=== PATIENT | female | born 2000 | race African-American/Black ===

== ENCOUNTER 2018-08-08 04:10 | Emergency (ER) | payer MEDICAID, SELFPAY ==
[2018-08-08 04:14] VITALS: BP 117/72; PULSE 84; RESP 20; TEMP 37.2; O2SAT 100; BMI 28.5
--- NOTE | 2018-08-08 04:17 | ED.RN ---
CALLED FOR EKG PER RN REQUEST, NO OLD EKGS IN MUSE
--- NOTE | 2018-08-08 04:32 | RAD_ITS ---
STUDY: X-RAY CHEST REASON FOR EXAM: Female, 17 years old. Chest pain TECHNIQUE: PA and lateral COMPARISON: None. FINDINGS: The lungs are clear and expanded. There is no demonstrated pleural abnormality. Normal size heart. Normal mediastinum and bianca. Normal visualized pulmonary arteries. Normal visualized aortic arch and descending thoracic aorta. Normal visualized thoracic spine. Normal visualized ribs, clavicles, and shoulders. There is no demonstrated abnormality of the visualized soft tissue structures of the upper abdomen. RAD/Chest PA and Lateral IMPRESSION: Normal x-ray examination of the chest. Electronically Signed: Asa Lao MD at 5:24 EST , Service support ,
--- NOTE | 2018-08-08 04:32 | EKG12_ITS ---
Test Reason : CP,SOB Blood Pressure : / mmHG Vent. Rate : 080 BPM Atrial Rate : 080 BPM P-R Int : 208 ms QRS Dur : 092 ms QT Int : 390 ms P-R-T Axes : 050 042 058 degrees QTc Int : 449 ms Normal sinus rhythm Normal ECG Confirmed by BENJIE ESTRADA, ESTHER ([id number]), assignment editor HUSEYIN RAMOS ([id number] on 08/11/2018 1:30:56 PM Referred By: YOANDY Confirmed By:ESTHER WALRDOP MD
[2018-08-08] MEDS: Ketorolac 30 MG/ML Syringe IV (04:42)
[2018-08-08 04:46] VITALS: BP 102/70; PULSE 75; RESP 16; O2SAT 100
[2018-08-08 04:52] LABS: Absolute Lymphocyte Count 2.31 X10^3/ul (0.83-4.51); Basophil# 0.04 X10^3/uL; Basophil% 0.5 % (0-1); Eosinophils% 2.7 % (0-5); Hematocrit 34.5 % (37-47); Hemoglobin 11.1 g/dl (12.0-15.0); Lymphocyte # 2.31 X10^3/ul (4.0); Mean Corp Hgb Conc 32.2 g/gl (32-36); Mean Corpuscular Hgb 25.9 pg (27.0-32.0); Mean Corpuscular Volume 80.6 fL (81-99); Monocyte# 0.87 X10^3/uL; Monocyte% 11.7 % (0-10); Neutrophil # 4.03 X10^3/uL (2.7-7.7); Platelet Count 280 K/mm3 (150-450); RBC Distribution Width CV 13.7 % (11.6-14.6); RBC Distribution Width SD 40.4 fl (35.1-43.9); Red Blood Count 4.28 M/mm3 (4.2-5.4); White Blood Count 7.5 K/mm3 (4.4-11.0)
[2018-08-08 04:55] LABS: POSITIVE COUNT NO; POSITIVE DIFFERENTIAL NO; POSITIVE MORPHOLOGY NO
[2018-08-08 04:59] LABS: Anion Gap 9 (5-15); BUN 9 mg/dL (7-18); BUN/Creat Ratio 11.4 RATIO (10-20); Calcium,Total 8.5 mg/dL (8.5-10.1); Chloride 107 mmol/L (98-107); Creatinine, Serum 0.79 mg/dL (0.55-1.02); EST Glomerular Filtration Rate 99 mL/min (>60); Est Glom Filt Rate - Afr Amer 120 mL/min (>60); Estimated Creatinine Clearance 94.75 ml/min; Glucose 84 mg/dL (74-106); Potassium 3.7 mmol/L (3.5-5.1); Sodium Level 142 mmol/L (136-145)
[2018-08-08 05:00] LABS: D-Dimer Quantitative (DVT/PE) 2.09 FEU/ug/m (0.27-0.49)
[2018-08-08 05:01] LABS: Pregnancy, Serum, hCG Quali. NEGATIVE Negative (0-9 Nonpreg)
--- NOTE | 2018-08-08 05:01 | CT_ITS ---
STUDY: CTA CHEST REASON FOR EXAM: Female, 17 years old. Chest pain RADIATION DOSAGE (If Supplied By Facility): CTDIvol = ( 5.08 ) mGy, DLP = ( 209.14 ) mGycm TECHNIQUE: The examination was performed with the intravenous administration of 100ML ml of Isovue 370 contrast material. Post-processing of the angiographic images was performed, with multiplanar reformation and 3D reconstruction. Individualized dose optimization techniques were used for this CT. COMPARISON: None. FINDINGS: Normal enhancement of the main pulmonary artery and right and left pulmonary arteries. Normal enhancement of the bilateral peripheral pulmonary arteries. There is no demonstrated pulmonary embolism. Normal thoracic aorta and visualized great vessels. There is no demonstrated aortic dissection. Normal heart and pericardium. Normal mediastinum. Normal hilar regions. Normal visualized trachea and bronchi. There are infiltrates at the LEFT lung base. There is a small LEFT pleural effusion. There is NO pneumothorax. Normal chest wall structures. Normal osseous structures. Normal visualized upper abdomen. CT/CTA Chest W/WO Contrast IMPRESSION: There is no demonstrated pulmonary embolism. Normal thoracic aorta and visualized great vessels. There is no demonstrated aortic dissection. Normal heart and pericardium. There are infiltrates at the LEFT lung base. There is a small LEFT pleural effusion. There is NO pneumothorax. Electronically Signed: Asa Lao MD at 6:28 EST , Service support ,
--- NOTE | 2018-08-08 05:02 | ED.VISSUMM ---
- ER Visit Summary Date of Service: 08/08/18 Chief Complaint: Chest pain History of Present Illness: The patient is a 17 F who states that she was at work yesterday at [employer] from 0700 hours until 1500 hrs. 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 She states that it hurts to breathe. This is persisted through the evening and into the night. She is tried her inhaler with no relief. She has never experienced this before. She denies feeling wheezy. She is on Sprintec and is a smoker. Physical Examination: Afebrile vital signs are stable Gen: Well-nourished well-developed Head: Normocephalic atraumatic Eyes: Perrl EOMI ENT: TMs clear no rhinorrhea moist mucous membranes Neck: Supple no lymphadenopathy no JVD nontender CVS: Regular rate rhythm no murmurs normal S1-S2 Respiratory: No distress clear to auscultation bilaterally mild chest tenderness to palpation in the left upper chest Abdomen: Soft nontender nondistended normal bowel sounds no masses Back: Nontender Extremity: Nontender no edema Skin: Normal color no rash Neuro: alert orientated ?3 CN II-XII intact normal strength sensation reflexes gait cerebellar Psych: Normal affect normal mood Test Results: CBC and chemistries were normal. Troponin was negative. Chest x-ray negative. EKG showed a sinus rhythm at a rate of 80 and test is negative. D-dimer however was significantly elevated at 2.09. CTA of the chest was ordered. This was negative for pulmonary embolism Emergency Department Course and Treatment: Patient received Toradol for pain. SANTANA is 0. I believe that this is musculoskeletal in nature. Patient was advised against smoking with control. Patient will do ibuprofen and rest. Follow-up with primary care if not improving return if worsening or concerns Impression: 1. Musculoskeletal chest pain This note was generated with [employer] dictation software. It may contain incorrect words, spelling, and punctuation that were not noted in review of the chart prior to signing ED Disposition - Plan for ED Patient: Disposition: Home or Assisted Living Chief Complaint: Chest Pain Instructions: ED Strain Chest Wall Prescriptions: Ibuprofen [Motrin] 800 mg PO TID PRN PRN #30 tab PRN Reason: Pain Referrals: Jaelyn Landis MD [STAFF PHYSICIAN] - (call to establish primary care)
--- NOTE | 2018-08-08 05:08 | ED.DCSUM_ITS ---
- ER Visit Summary Date of Service: 08/08/18 Chief Complaint: Chest pain History of Present Illness: The patient is a 17 F who states that she was at work yesterday at [employer] from 0700 hours until 1500 hrs. 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 She states that it hurts to breathe. This is persisted through the evening and into the night. She is tried her inhaler with no relief. She has never experienced this before. She denies feeling wheezy. She is on Sprintec and is a smoker. Physical Examination: Afebrile vital signs are stable Gen: Well-nourished well-developed Head: Normocephalic atraumatic Eyes: Perrl EOMI ENT: TMs clear no rhinorrhea moist mucous membranes Neck: Supple no lymphadenopathy no JVD nontender CVS: Regular rate rhythm no murmurs normal S1-S2 Respiratory: No distress clear to auscultation bilaterally mild chest tenderness to palpation in the left upper chest Abdomen: Soft nontender nondistended normal bowel sounds no masses Back: Nontender Extremity: Nontender no edema Skin: Normal color no rash Neuro: alert orientated ?3 CN II-XII intact normal strength sensation reflexes gait cerebellar Psych: Normal affect normal mood Test Results: CBC and chemistries were normal. Troponin was negative. Chest x- ray negative. EKG showed a sinus rhythm at a rate of 80 and test is negative. D-dimer however was significantly elevated at 2.09. CTA of the chest was ordered. This was negative for pulmonary embolism Emergency Department Course and Treatment: Patient received Toradol for pain. SANTANA is 0. I believe that this is musculoskeletal in nature. Patient was advised against smoking with control. Patient will do ibuprofen and rest. Follow-up with primary care if not improving return if worsening or concerns Impression: 1. Musculoskeletal chest pain This note was generated with [employer] dictation software. It may contain incorrect words, spelling, and punctuation that were not noted in review of the chart prior to signing ED Disposition - Plan for ED Patient: Disposition: Home or Assisted Living Chief Complaint: Chest Pain Instructions: ED Strain Chest Wall Prescriptions: Ibuprofen [Motrin] 800 mg PO TID PRN PRN #30 tab PRN Reason: Pain Referrals: Jaelyn Landis MD [STAFF PHYSICIAN] - (call to establish primary care)
[2018-08-08 05:40] VITALS: BP 110/69; PULSE 73; RESP 16; O2SAT 99
[2018-08-08 06:12] VITALS: BP 108/68; PULSE 76; RESP 16; O2SAT 100
[2018-08-08 07:07] VITALS: BP 105/61; PULSE 78; RESP 18; O2SAT 99
--- OUTSIDE RECORDS SUMMARY | 2018-11-09 11:16 | XMS RPT_ITS ---
:2000 Author Organization [facility] Care Team Providers Name Role Phone HOMA SUZY Attending Unavailable AVIVA SINGH (CNAnderson) Attending Unavailable Anderson OVALLES (AVNI) Attending Unavailable Joe Oh Attending Unavailable Primay Care Physicia, No Primary Care Unavailable PROBLEMS PROBLEMS No Problem Records FoundPROCEDURES PROCEDURES No Procedure Records FoundRESULTS RESULTS PROGRESS Observed: 08/23/2018 Status: COMPLETED Source: [place] 9:55 AM [facility] REPOSITORY O ID: [id number] Author: Anderson Pickering (Avni) Josr Service: (none) Author Type: Physician Line Installer Repairer Type: Progress Notes Filed: 08/23/2018 12:55 PM Note Text: 17 year old female with c/o 3 days with cold sx including stuffy, drippy, sinus pressure, scratchy sore throat, no fever, mild cough occasional phlegm. Niece has sx of pneumonia, was babysitting here. Sister was diagnosed with strep. HISTORIES FAMILY HISTORY Problem Relation Age of Onset - Cancer Mother Maternal AND Paternal sides - Diabetes Mother Maternal side PAST MEDICAL HISTORY Diagnosis Date - Abnormal menstrual periods 2011 Age [age] Years Old - Asthma exacerbation, mild 2015 - NEGATIVE MEDICAL HISTORY 03/16/11 normal color vision PAST SURGICAL HISTORY Procedure Laterality Date - NONE Social History Marital status: Single Spouse name: Years of education: 12 Number of children: 0 Occupational History Occupation Employer Comment student Social History Main Topics Smoking status: Never Smoker Smokeless tobacco: Never Used Comment: guardian smokes outside Alcohol use: No Drug use: No Sexual activity: Yes Partners with: Male control/protection: Pill ACTIVE PROBLEM LIST Asthma Current Outpatient Prescriptions: albuterol HFA (PROAIR HFA) 90 mcg/actuation inhaler Inhale 2 Puffs as instructed every 6 hours as needed for Wheezing/Shortness of Breath. Disp: 1 g Rfl: 11 ibuprofen (MOTRIN) 800 mg tablet Take 800 mg by mouth every 6 hours as needed. Disp: Rfl: loratadine (CLARITIN) 10 mg tablet Take 1 tablet by mouth once daily. Disp: 30 tablet Rfl: 6 norgestimate 0.25 mg-ethinyl estradiol 35 mcg (ESTARYLLA) 0.25-35 mg-mcg per tablet Take 1 tablet by mouth once daily. Disp: 1 Package Rfl: 2 rizatriptan (MAXALT) 10 mg tablet Take 1 tablet by mouth as needed for Migraine Headache (see administration instructions). Take at onset of headache; may repeat after 2hrs. Do not exceed 30mg/day (3 doses). Disp: 20 tablet Rfl: 2 No current facility-administered medications for this visit. ASTHMA ACTION PLAN due on 2000 ASTHMA CONTROL TEST due on 2002 ONE PNEUMOVAX PRIOR TO AGE 65 due on 2017 INFLUENZA(1) due on 04/22/2018 EXAM: OBJECTIVE: BP 110/66 Pulse 88 Temp 36.9 ?C (98.4 ?F) (Tympanic) Resp 16 Wt 71.7 kg (158 lb) LMP 08/18/2018 (Exact Date) BMI 27.99 kg/m? General appearance: pleasant well appearing young woman in no acute distress but congestion noted. Respirations: regular, unlabored Color: pink to lips and nailbeds, normal turgor Skin: warm, dry, no unusual rashes or lesions Head: Normocephalic Eyes: sclerae and conjunctivae without injection or exudate, PERRLA, EOMI, corneal light reflex symmetric bilaterally Ears: TM's are clear/ lopez bilaterally with normal landmarks, no swelling or deformity ear canal or external ear Nose/Sinuses: Nose patent. No turbinate swelling. Active exudate: no. Maxillary and frontal sinuses nontender to percussion. Oropharynx: oral membranes are moist. Lips, mucosa, and tongue free from lesions. Gums without inflammation. Posterior pharynx no injection, no exudate, no tonsillar hypertrophy. Neck: Neck supple, mild anterior cervical lymphadenopathy ; thyroid without mass or tenderness. Chest: normally shaped, equal expansion with breaths. Lungs: Lungs clear to auscultation and percussion. No crackles or wheezes. Heart: RRR without murmur, gallop, or rubs. S1 and S2 normal. R. Strep test negative ASSESSMENT/PLAN: 1. Sore throat - ICD9: 462, ICD10: J02.9 (primary diagnosis) - suspect viral - RAPID STREP TEST B/O 2. Acute upper respiratory infection - ICD9: 465.9, ICD10: J06.9 - Discussed viral etiology and rationale for treatment. - Symptomatic treatment with prn analgesia - Supportive care with fluids and rest f/u prn, worsening or fever Anderson Ovalles PA-C CNOV Observed: 08/23/2018 Status: COMPLETED Source: [place] 9:40 AM [facility] REPOSITORY Office Visit (FAMPWS) JENNIFER YANG ([id number]) 2000 F Date Time Provider Department 08/23/18 9:40 AM Anderson OVALLES) FAMPWS During your visit today, we recorded the following information about you: Temperature Pulse Respiration Blood pressure 98.4 degrees 88/minute 16/minute 110/66 Weight Last Period 71.7 kg 08/18/18 Anderson Ovalles PA-C 08/23/2018 12:55 PM Signed 17 year old female with c/o 3 days with cold sx including stuffy, drippy, sinus pressure, scratchy sore throat, no fever, mild cough occasional phlegm. Niece has sx of pneumonia, was babysitting here. Sister was diagnosed with strep. HISTORIES FAMILY HISTORY Problem Relation Age of Onset - Cancer Mother Maternal AND Paternal sides - Diabetes Mother Maternal side PAST MEDICAL HISTORY Diagnosis Date - Abnormal menstrual periods 2010 Age [age] Years Old - Asthma exacerbation, mild 2014 - NEGATIVE MEDICAL HISTORY 03/16/11 normal color vision PAST SURGICAL HISTORY Procedure Laterality Date - NONE Social History Marital status: Single Spouse name: Years of education: 12 Number of children: 0 Occupational History Occupation Employer Comment student Social History Main Topics Smoking status: Never Smoker Smokeless tobacco: Never Used Comment: guardian smokes outside Alcohol use: No Drug use: No Sexual activity: Yes Partners with: Male control/protection: Pill ACTIVE PROBLEM LIST Asthma Current Outpatient Prescriptions: albuterol HFA (PROAIR HFA) 90 mcg/actuation inhaler Inhale 2 Puffs as instructed every 6 hours as needed for Wheezing/Shortness of Breath. Disp: 1 g Rfl: 11 ibuprofen (MOTRIN) 800 mg tablet Take 800 mg by mouth every 6 hours as needed. Disp: Rfl: loratadine (CLARITIN) 10 mg tablet Take 1 tablet by mouth once daily. Disp: 30 tablet Rfl: 6 norgestimate 0.25 mg-ethinyl estradiol 35 mcg (ESTARYLLA) 0.25-35 mg-mcg per tablet Take 1 tablet by mouth once daily. Disp: 1 Package Rfl: 2 rizatriptan (MAXALT) 10 mg tablet Take 1 tablet by mouth as needed for Migraine Headache (see administration instructions). Take at onset of headache; may repeat after 2hrs. Do not exceed 30mg/day (3 doses). Disp: 20 tablet Rfl: 2 No current facility-administered medications for this visit. ASTHMA ACTION PLAN due on 2000 ASTHMA CONTROL TEST due on 2002 ONE PNEUMOVAX PRIOR TO AGE 65 due on 2017 INFLUENZA(1) due on 04/22/2018 EXAM: OBJECTIVE: BP 110/66 Pulse 88 Temp 36.9 ?C (98.4 ?F) (Tympanic) Resp 16 Wt 71.7 kg (158 lb) LMP 08/18/2018 (Exact Date) BMI 27.99 kg/m? General appearance: pleasant well appearing young woman in no acute distress but congestion noted. Respirations: regular, unlabored Color: pink to lips and nailbeds, normal turgor Skin: warm, dry, no unusual rashes or lesions Head: Normocephalic Eyes: sclerae and conjunctivae without injection or exudate, PERRLA, EOMI, corneal light reflex symmetric bilaterally Ears: TM's are clear/ lopez bilaterally with normal landmarks, no swelling or deformity ear canal or external ear Nose/Sinuses: Nose patent. No turbinate swelling. Active exudate: no. Maxillary and frontal sinuses nontender to percussion. Oropharynx: oral membranes are moist. Lips, mucosa, and tongue free from lesions. Gums without inflammation. Posterior pharynx no injection, no exudate, no tonsillar hypertrophy. Neck: Neck supple, mild anterior cervical lymphadenopathy ; thyroid without mass or tenderness. Chest: normally shaped, equal expansion with breaths. Lungs: Lungs clear to auscultation and percussion. No crackles or wheezes. Heart: RRR without murmur, gallop, or rubs. S1 and S2 normal. R. Strep test negative ASSESSMENT/PLAN: 1. Sore throat - ICD9: 462, ICD10: J02.9 (primary diagnosis) - suspect viral - RAPID STREP TEST B/O 2. Acute upper respiratory infection - ICD9: 465.9, ICD10: J06.9 - Discussed viral etiology and rationale for treatment. - Symptomatic treatment with prn analgesia - Supportive care with fluids and rest f/u prn, worsening or fever AVNI Resendez PA-C 08/23/2018 10:04 AM Signed Your rapid strep test was negative. A second swab has been sent for confirmation by DNA probe. Results will be back in 2 days. It is unlikely that it will be positive, but if it is, you will be notified and antibiotics will be prescribed. If you haven't heard from us, you may call in 3 days for results. Most sore throats will resolve without the use of antibiotics. Cold viruses are the most common causes of sore throat. They are transmitted through direct contact and airborne droplets from other infected people through coughing or sneezing. Usually the throat pain will resolve over 4-5 days, but may occur with or be followed by other symptoms, such as runny nose, stuffiness, head congestion, chest congestion , and cough. Be aware that most sore throats are caused by viruses, not strep. The Centers for Disease Control and Prevention (CDC) recommends AGAINST treating sore throats with antibiotics unless the strep test is positive. Strep cannot be diagnosed by symptoms or a physical exam alone. The level of throat pain doesn't correlate with whether or not the infection is bacterial or viral. Some of the worst sore throats may come from viruses. For example, Caitlyn Allen which causes mononucleosis may produce painful, inflamed tonsils which exude pus. Coxsacchie virus causes ulcerations in the back of the throat which can cause an extremely painful swallow. These virus do not respond to antibiotics. Strep. throat is caused by a bacterial infection with Streptococcus Pyogenes. We test and treat for Strep. because of the rare occurrence of Rheumatic Fever which can follow untreated infection. This is an autoimmune response in which a particular strain of this bacteria carries a protein that is similar to that in heart and kidney tissue. The immune system then gets trigger to attack the heart and kidney. Other bacteria and viruses which cause sore throats do not need to be treated with antibiotics. Your body will fight them off and develop immunity which will prevent it from occurring again. Your body would also fight off Strep. and get better too, but because risk of developing rheumatic fever, we treat it differently. Sore throats may also come from other sources such as environmental allergies, postnasal drainage from changes in temperature or humidity, dryness from mouth breathing during sleep, reflux of stomach acids, or even vocal overuse. For sore throat treatment, run a cool mist humidifier in the sleeping area to keep mucus membranes moist. Drink plenty of fluids, especially water, juices, and non-caffeinated beverages, (caffeine acts as a diuretic and may worsen dryness). Warm salt water gargles may be soothing (rinse and spit). Chlorseptic spray, lozenges, or regular use of Tylenol, Advil, or other OTC pain remedies may help. For cold sx: Get plenty of rest. Force fluids daily with water and juices. Nasal saline spray may help to keep nose open and moist: 2- 3 squirts each side every few hours. This also help to rinse out virus and bacteria causing infection. Cool mist humidifier in room during sleep. May use OTC Tylenol or Ibuprofen as direct for discomfort. For sore throat, warm salt water gargles, Chlorseptic spray, lozenges or other OTC sore throat remedies may help. Decongestants such as plain Sudafed or with expectorant such as Mucinex D may help with nasal stuffiness or facial and sinus pressure. Generics are fine. These are over the counter but require an adult signature. Oxymetolazine nasal decongestants (Afrin, Dristan, Pedro's) may also help (in place of oral decongestants) but should not be used longer than 48-72 hours due to potential rebound congestion. OTC antihistamines such Benadryl (make cause drowsiness) or Zyrtec/ Clariten/ Candace (non-drowsy) may help watery nasal drainage though they are generally not recommended because they dry mucus and make it sticky. The flow of mucus is important to help your body rid the virus. If cough keeps you awake at night, try OTC remedies first, such as Nyquil, Delsym, Pedro's 44 or Mucinex DM. If this doesn't help you sleep, call the office for a prescription. Be careful if you are combining cough and cold medications that you aren't doubling the medicines. If you aren't sure: ask the pharmacist for help. Cough or sneeze into your sleeve to prevent spread of infected secretions. Wash your hands frequently. Try not to cough or sneeze on surfaces others might touch. You may use Ibuprofen 600mg every 6-8 hours with food routinely until pain is fully resolved, then prn. Ibuprofen can cause stomach symptoms including ulceration, bleeding, nausea, pain, and diarrhea. Make sure to take it with food. If you are known to have allergy to anti-inflamatories medications, or have known kidney disease, make sure we know this before you take the medication. If symptoms fail to improve in 5-7 days, fever > 100.5F, general worsening, or other concerning symptoms, return to [facility] or SUZY LUTHER MD. Referring Provider: SELF [[id number]] Allergies As of Date: 08/23/2018 Noted Allergy Reaction environmental [Other] 05/11/2008 Comments: seasonal allergies IMITREX (SUMATRIPTAN SUCCINATE) 05/31/2018 12 - Shortness of Breath Date Reviewed: 08/23/2018 Reviewed by: Selma Mcfadden LPN - Fully Assessed Reason for Visit: URI [115] Cmt: nasal congestion, post nasal drip with scratchy throat x 2 days. Has been exposed to strep and pneumonia Reason For Visit History Recorded Primary Visit Diagnosis:Sore throat [J02.9] Other Visit Diagnosis:Acute upper respiratory infection [J06.9] Order(s):RAPID STREP TEST B/O [[id number]] Order #: [id number] Prescriptions as of 08/23/2018 Sig: ALBUTEROL SULFATE HFA 90 MCG/* Inhale 2 Puffs as instructed * IBUPROFEN 800 MG TABLET Take 800 mg by mouth every 6 * LORATADINE 10 MG TABLET Take 1 tablet by mouth once d* NORGESTIMATE 0.25 MG-ETHINYL * Take 1 tablet by mouth once d* RIZATRIPTAN 10 MG TABLET Take 1 tablet by mouth as nee* Problem List As Of Date 08/23/2018 Noted Resolved Asthma [J45.909] INVALID FOR* Other instructions from your clinician: Your rapid strep test was negative. A second swab has been sent for confirmation by DNA probe. Results will be back in 2 days. It is unlikely that it will be positive, but if it is, you will be notified and antibiotics will be prescribed. If you haven't heard from us, you may call in 3 days for results. Most sore throats will resolve without the use of antibiotics. Cold viruses are the most common causes of sore throat. They are transmitted through direct contact and airborne droplets from other infected people through coughing or sneezing. Usually the throat pain will resolve over 4-5 days, but may occur with or be followed by other symptoms, such as runny nose, stuffiness, head congestion, chest congestion , and cough. Be aware that most sore throats are caused by viruses, not strep. The Centers for Disease Control and Prevention (CDC) recommends AGAINST treating sore throats with antibiotics unless the strep test is positive. Strep cannot be diagnosed by symptoms or a physical exam alone. The level of throat pain doesn't correlate with whether or not the infection is bacterial or viral. Some of the worst sore throats may come from viruses. For example, Caitlyn Allen which causes mononucleosis may produce painful, inflamed tonsils which exude pus. Coxsacchie virus causes ulcerations in the back of the throat which can cause an extremely painful swallow. These virus do not respond to antibiotics. Strep. throat is caused by a bacterial infection with Streptococcus Pyogenes. We test and treat for Strep. because of the rare occurrence of Rheumatic Fever which can follow untreated infection. This is an autoimmune response in which a particular strain of this bacteria carries a protein that is similar to that in heart and kidney tissue. The immune system then gets trigger to attack the heart and kidney. Other bacteria and viruses which cause sore throats do not need to be treated with antibiotics. Your body will fight them off and develop immunity which will prevent it from occurring again. Your body would also fight off Strep. and get better too, but because risk of developing rheumatic fever, we treat it differently. Sore throats may also come from other sources such as environmental allergies, postnasal drainage from changes in temperature or humidity, dryness from mouth breathing during sleep, reflux of stomach acids, or even vocal overuse. For sore throat treatment, run a cool mist humidifier in the sleeping area to keep mucus membranes moist. Drink plenty of fluids, especially water, juices, and non-caffeinated beverages, (caffeine acts as a diuretic and may worsen dryness). Warm salt water gargles may be soothing (rinse and spit). Chlorseptic spray, lozenges, or regular use of Tylenol, Advil, or other OTC pain remedies may help. For cold sx: Get plenty of rest. Force fluids daily with water and juices. Nasal saline spray may help to keep nose open and moist: 2-3 squirts each side every few hours. This also help to rinse out virus and bacteria causing infection. Cool mist humidifier in room during sleep. May use OTC Tylenol or Ibuprofen as direct for discomfort. For sore throat, warm salt water gargles, Chlorseptic spray, lozenges or other OTC sore throat remedies may help. Decongestants such as plain Sudafed or with expectorant such as Mucinex D may help with nasal stuffiness or facial and sinus pressure. Generics are fine. These are over the counter but require an adult signature. Oxymetolazine nasal decongestants (Afrin, Dristan, Pedro's) may also help (in place of oral decongestants) but should not be used longer than 48-72 hours due to potential rebound congestion. OTC antihistamines such Benadryl (make cause drowsiness) or Zyrtec/ Clariten/ Candace (non-drowsy) may help watery nasal drainage though they are generally not recommended because they dry mucus and make it sticky. The flow of mucus is important to help your body rid the virus. If cough keeps you awake at night, try OTC remedies first, such as Nyquil, Delsym, Pedro's 44 or Mucinex DM. If this doesn't help you sleep, call the office for a prescription. Be careful if you are combining cough and cold medications that you aren't doubling the medicines. If you aren't sure: ask the pharmacist for help. Cough or sneeze into your sleeve to prevent spread of infected secretions. Wash your hands frequently. Try not to cough or sneeze on surfaces others might touch. You may use Ibuprofen 600mg every 6-8 hours with food routinely until pain is fully resolved, then prn. Ibuprofen can cause stomach symptoms including ulceration, bleeding, nausea, pain, and diarrhea. Make sure to take it with food. If you are known to have allergy to anti-inflamatories medications, or have known kidney disease, make sure we know this before you take the medication. If symptoms fail to improve in 5-7 days, fever > 100.5F, general worsening, or other concerning symptoms, return to [facility] or SUZY LUTHER MD. Letter Text [facility] [address], [place] [address] Jennifer Tam Dylon [address] [place] [address] Clinic #: [id number] 08/23/2018 To Whom it may concern, Jennifer Yang was examined here for an acute medical condition. Please excuse her from work missed today. Thank you, Antwan Ovalles PA-C Encounter Status:Closed by Anderson OVALLES PA-C on 08/23/18 EMERGENCY DEPARTMENT Observed: 08/14/2018 Status: F Source: [place] SUMMARY 7:03 AM [facility] RE[facility]IT[facility] Medical Records Department [address] [place] [address] Emergency Department Summary 08/08/18 0502 MR#: [id number] Acct: [id number] Name: JENNIFER YANG Rep #: [id number] : 2000 17 From: Joe Oh DO PCP: Care Physician, No Primary Status: DEP ER - ER Visit Summary Date of Service: 08/08/18 Chief Complaint: Chest pain History of Present Illness: The patient is a 17 F who states that she was at work yesterday at [employer] from 0700 hours until 1500 hrs. 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 She states that it hurts to breathe. This is persisted through the evening and into the night. She is tried her inhaler with no relief. She has never experienced this before. She denies feeling wheezy. She is on Sprintec and is a smoker. Physical Examination: Afebrile vital signs are stable Gen: Well-nourished well-developed Head: Normocephalic atraumatic Eyes: Perrl EOMI ENT: TMs clear no rhinorrhea moist mucous membranes Neck: Supple no lymphadenopathy no JVD nontender CVS: Regular rate rhythm no murmurs normal S1-S2 Respiratory: No distress clear to auscultation bilaterally mild chest tenderness to palpation in the left upper chest Abdomen: Soft nontender nondistended normal bowel sounds no masses Back: Nontender Extremity: Nontender no edema Skin: Normal color no rash Neuro: alert orientated 3 CN II-XII intact normal strength sensation reflexes gait cerebellar Psych: Normal affect normal mood Test Results: CBC and chemistries were normal. Troponin was negative. Chest x-ray negative. EKG showed a sinus rhythm at a rate of 80 and test is negative. D-dimer however was significantly elevated at 2.09. CTA of the chest was ordered. This was negative for pulmonary embolism Emergency Department Course and Treatment: Patient received Toradol for pain. SANTANA is 0. I believe that this is musculoskeletal in nature. Patient was advised against smoking with control. Patient will do ibuprofen and rest. Follow-up with primary care if not improving return if worsening or concerns Impression: 1. Musculoskeletal chest pain This note was generated with [employer] dictation software. It may contain incorrect words, spelling, and punctuation that were not noted in review of the chart prior to signing ED Disposition - Plan for ED Patient: Disposition: Home or Assisted Living Chief Complaint: Chest Pain Instructions: ED Strain Chest Wall Prescriptions: Ibuprofen [Motrin] 800 mg PO TID PRN PRN #30 tab PRN Reason: Pain Referrals: Jaelyn Landis MD [STAFF PHYSICIAN] - (call to establish primary care) What to do if you have Problems For any increased pain, shortness of breath, bleeding, nausea or vomiting, chest pain, or any unexpected problems, contact your Primary Care Provider. Call [facility] ([phone]) or report to the closest Emergency Room. Call 911 if necessary. 08/14/18 0703 <Electronically signed by Joe Oh DO> Date Joe Oh DO Cosigner Signature (If Indicated): Date CC: No Primary Care Physician 12 LEAD ELECTROCARDIOGRAM Observed: 08/11/2018 Status: F Source: [place] 1:31 PM [facility] RE[facility]ITORY [facility] Cardiovascular Services [address] [place] [id number] Lead EKG 08/08/18 0418 MR#: [id number] Acct: [id number] Name: JENNIFER YANG Rep #: [id number] : 2000 17 From: Rik Lam MD Attending Dr: Status: DEP ER Ordering Dr: Joe Oh DO Date: 08/08/18 Location: ED Sex: F AA Admitted: Test Reason : CP,SOB Blood Pressure : / mmHG Vent. Rate : 080 BPM Atrial Rate : 080 BPM P-R Int : 208 ms QRS Dur : 092 ms QT Int : 390 ms P-R-T Axes : 050 042 058 degrees QTc Int : 449 ms Normal sinus rhythm Normal ECG Confirmed by RIK LAM MD ([id number]), scientific editor HUSEYIN RAMOS ([id number]) on 08/11/2018 1:30:56 PM Referred By: YOANDY Confirmed By:RIK LAM MD 08/11/18 1331 Date Rik Lam MD CC: No Primary Care Physician; Joe Oh DO Signed CTA CHEST W/WO Observed: 08/08/2018 Status: F Source: [place] CONTRAST 5:01 AM [facility] [facility] Imaging Services [address] [place] [address] CTA Chest W/WO Contrast MR#: [id number] Acct: [id number] Name: JENNIFER YANG Rep #: [id number] : 2000 F 17 From: Asa Lao PCP: Care Physician, No Primary Status: REG ER Study: CTA Chest W/WO Contrast Date of Exam: 08/08/18 Exam# [id number] Ordering Dr: Joe Oh DO STUDY: CTA CHEST REASON FOR EXAM: Female, 17 years old. Chest pain RADIATION DOSAGE (If Supplied By Facility): CTDIvol = ( 5.08 ) mGy, DLP = ( 209.14 ) mGycm TECHNIQUE: The examination was performed with the intravenous administration of 100ML ml of Isovue 370 contrast material. Post-processing of the angiographic images was performed, with multiplanar reformation and 3D reconstruction. Individualized dose optimization techniques were used for this CT. COMPARISON: None. FINDINGS: Normal enhancement of the main pulmonary artery and right and left pulmonary arteries. Normal enhancement of the bilateral peripheral pulmonary arteries. There is no demonstrated pulmonary embolism. Normal thoracic aorta and visualized great vessels. There is no demonstrated aortic dissection. Normal heart and pericardium. Normal mediastinum. Normal hilar regions. Normal visualized trachea and bronchi. There are infiltrates at the LEFT lung base. There is a small LEFT pleural effusion. There is NO pneumothorax. Normal chest wall structures. Normal osseous structures. Normal visualized upper abdomen. CT/CTA Chest W/WO Contrast IMPRESSION: There is no demonstrated pulmonary embolism. Normal thoracic aorta and visualized great vessels. There is no demonstrated aortic dissection. Normal heart and pericardium. There are infiltrates at the LEFT lung base. There is a small LEFT pleural effusion. There is NO pneumothorax. Electronically Signed: Asa Lao MD at 6:28 EST , Service support , CC: No Primary Care Physician; Joe Oh DO Healthcare Associate: Signed CHEST PA AND LATERAL Observed: 08/08/2018 Status: F Source: [place] 4:33 AM [facility] REPOSITORY [facility] Imaging Services [address] [place] [address] Chest PA and Lateral MR#: [id number] Acct: [id number] Name: JENNIFER YANG Rep #: [id number] : 2000 F 17 From: Asa Lao PCP: Care Physician, No Primary Status: REG ER Study: Chest PA and Lateral Date of Exam: 08/08/18 Exam# [id number] Ordering Dr: Joe Oh DO STUDY: X-RAY CHEST REASON FOR EXAM: Female, 17 years old. Chest pain TECHNIQUE: PA and lateral COMPARISON: None. FINDINGS: The lungs are clear and expanded. There is no demonstrated pleural abnormality. Normal size heart. Normal mediastinum and bianca. Normal visualized pulmonary arteries. Normal visualized aortic arch and descending thoracic aorta. Normal visualized thoracic spine. Normal visualized ribs, clavicles, and shoulders. There is no demonstrated abnormality of the visualized soft tissue structures of the upper abdomen. RAD/Chest PA and Lateral IMPRESSION: Normal x-ray examination of the chest. Electronically Signed: Asa Lao MD at 5:24 EST , Service support , CC: No Primary Care Physician; Joe Oh DO Healthcare Associate: Signed CBC W/DIFF, AUTOMATED Collected: 08/08/2018 Status: F Source: [place] 4:14 AM [facility] REPOSITORY TYPE CODE TESTS RESULT OUT OF RANGE REFERENCE UNITS LAB L100.1000 4.4-11.0 K/mm3 Normal WBC 7.5 LAB L100.1200 4.2-5.4 M/mm3 Normal RBC 4.28 LAB L100.1300 12.0-15.0 g/dl Low HGB 11.1 LAB L100.1400 37-47 % Low HCT 34.5 LAB L100.1500 81-99 fL Low MCV 80.6 LAB L100.1600 27.0-32.0 pg Low MCH 25.9 LAB L100.1700 32-36 g/gl Normal MCHC 32.2 LAB L100.1810 11.6-14.6 % Normal RDW CV 13.7 LAB L100.1820 35.1-43.9 fl Normal RDW SD 40.4 LAB L100.1900 150-450 K/mm3 Normal PLT 280 LAB L100.2000 6.2-12.0 fl Normal MPV 9.0 LAB L100.2100 47-70 % Normal NEUT% 54.0 LAB L100.2200 19-41 % Normal LY% 31.0 LAB L100.2300 0-10 % High MONO% 11.7 LAB L100.2400 0-5 % Normal EO% 2.7 LAB L100.2500 0-1 % Normal BASO% 0.5 LAB L100.2550 0.0-0.9 % Normal IM GRAN % 0.100 Result Comment: IG% - Immature Granulocytes (promyelocytes, myelocytes and metamyelocytes) > 1% indicates that a LEFT SHIFT is Present. LAB L100.2620 2.0-7.7 X10 3/uL Normal Absolute Neut 4.0 LAB L100.2720 0.83-4.51 X10 3/ul Normal Absolute Lymph 2.31 Performed By: #### L100.0100 #### [facility] [address] [place], [place], [id number] BASIC METABOLIC Collected: 08/08/2018 Status: F Source: [place] PROFILE (BMP) 4:14 AM [facility] REPOSITORY TYPE CODE TESTS RESULT OUT OF RANGE REFERENCE UNITS LAB L501.0100 74-106 mg/dL Normal GLU 84 Result Comment: Please note revised GLUCOSE reference range effective 2017. LAB L501.1000 7-18 mg/dL Normal BUN 9 LAB L501.1100 0.55-1.02 mg/dL Normal CREAT,SERUM 0.79 Result Comment: The validity of the calculated GFR AND GFRAA in patients over 70 years has not been determined. Clinical correlation is essential. LAB L501.1110 >60 mL/min Normal EST GFR 99 Result Comment: Non- GFR Calc LAB L501.1115 >60 mL/min Normal EST GFR - AA 120 Result Comment: GFR Calc LAB L501.1255 ml/min Normal Estimated CRCL 94.75 LAB L501.1300 10-20 RATIO Normal BUN/CRE 11.4 LAB L501.2200 8.5-10 mg/dL Normal .1 CA 8.5 LAB L501.5300 136-14 mmol/L Normal 5 NA 142 LAB L501.5600 3.5-5. mmol/L Normal 1 K 3.7 LAB L501.5900 98-107 mmol/L Normal CL 107 LAB L501.6100 21.0-3 mmol/L Normal 2.0 CO2 26.0 LAB L501.6200 5-15 Normal GAP 9 Performed By: #### L500.2500, L501.4010 #### [facility] [address] [facility]. [place], [place], [address] TROPONIN-I Collected: 08/08/2018 Status: F Source: [place] 4:14 AM [facility] REPOSITORY TYPE CODE TESTS RESULT OUT OF RANGE REFERENCE UNITS LAB L501.4010 <0.045 ng/mL Normal < 0.015 TROPONIN-I Result Comment: TROPONIN-I EXPECTED VALUES <0.045 Negative 0.045 - 0.590 Consistent with Cardiac Damage > OR = 0.600 Critical Value Not every elevated troponin is indicative of IA. These values should be used with clinical judgement in examining the patient's clinical picture for diagnosis. To establish a diagnosis of IA versus myocardial injury, there must be a demonstrated rise and/or fall in the troponin values, in addition to ischemic symptoms, EKG changes, new regional wall motion abnormality, and/or angiographical evidence. PLEASE NOTE: REFERENCE RANGES EDITED 18 Performed By: #### L500.2500, L501.4010 #### [facility] [address] [facility] [place], [address] D-DIMER QUANTITATIVE Collected: 08/08/2018 Status: F Source: [place] (DVT/PE) 4:14 AM [facility] REPOSITORY TYPE CODE TESTS RESULT OUT OF RANGE REFERENCE UNITS LAB L300.8000 0.27-0.49 FEU/ug/m High alert D-DIMER 2.09 QUANT Result Comment: RESULTS CALLED TO ED 08/08/18 [address]. REPORT READ BACK BY SAME . D-Dimer ELEVATED (>0.49): Additional studies and clinical assessments are indicated to conclude diagnosis of: Deep Vein Thrombosis (DVT) or Pulmonary Embolism (PE) Performed By: #### L300.8000 #### [facility] [address], [address] ,SERUM,HCG QUALI. Collected: Status: F Source: [place] 08/08/2018 4:14 AM [facility] REPOSITORY TYPE CODE TESTS RESULT OUT OF REFERENCE UNITS RANGE LAB L700.6700 =>Qualitative mIU/mL Normal HCG Qual < 1 triggr LAB L700.7000 0-9 Nonpreg Negative Normal HCGSQUAL NEGATIVE Performed By: #### L700.6800 #### [facility] [address], [address] Observed: 06/14/2018 Status: F Source: [place] URINE CULTURE 3:16 PM [facility] REPOSITORY Sp. Request/Comment: - Specimen received in preservative Culture Result - >=100,000 CFU/ml Klebsiella pneumoniae --> ABNORMAL ALERT ORGANISM: Klebsiella pneumoniae METHOD: Minimum inhibitory concentration(Vitek) Antibiotic Interp EDWINA Status Ampicillin RESISTANT F Gentamicin SUSCEPTIBLE <=1 F Trimeth sulfameth SUSCEPTIBLE <=20 F Ciprofloxacin SUSCEPTIBLE <=0.25 F Nitrofurantoin SUSCEPTIBLE <=16 F Cefepime SUSCEPTIBLE <=1 F Piperacillin/Tazobac SUSCEPTIBLE <=4 F Ampicillin Sulbact SUSCEPTIBLE 4 F Ceftriaxone SUSCEPTIBLE <=1 F Meropenem SUSCEPTIBLE <=0.25 F Ertapenem SUSCEPTIBLE <=0.5 F Cefazolin SUSCEPTIBLE <=4 F CLSI breakpoints for therapy of uncomplicated UTI's due to E.coli, K.pneumoniae, and P.mirabilis were applied and may be used to predict the activity of oral agents(cefaclor, cefdinir, cefpodoxime, cefp rozil, cefuroxime, cephalexin, loracarbef). Performed By: #### URCUL #### [facility] [employer] [address] [place], [place] [address] GC/CHLAMYDIA AMPLIF Collected: 06/14/2018 Status: F Source: [place] 3:00 PM [facility] REPOSITORY TYPE CODE TESTS RESULT OUT OF REFERENCE UNITS RANGE LAB GCCTSR GC/Chlam Amp Cervix Source LAB GCAMPL GC Negative Amplification for Neisseria gonorrhoeae by amplification. LAB CLAMPL Chlamydia Negative Amplif for Chlamydia trachomatis by amplification. Performed By: #### GCCT #### [facility] [employer] [address] [place], [place] [address] CNOV Observed: 06/14/2018 Status: COMPLETED Source: [place] 2:30 PM [facility] REPOSITORY Office Visit (WOOB) JENNIFER YANG ([id number]) 2000 F Date Time Provider Department 06/14/18 2:30 PM AVIVA SINGH ([facility]) WOOB During your visit today, we recorded the following information about you: Blood pressure Weight Last Period 130/90 69.9 kg 06/05/18 Aviva Singh APRN.CNM 06/14/2018 4:54 PM Signed Jennifer Tam Dylon is a 17 year old female who presents for problem visit reporting vaginal discomfort after intercourse last night. HPI: Patient reports vaginal pain after intercourse last night. Patient reports 2 episodes of intercourse last night after which she had vaginal pain afterwards. Patient believes that she may not have had enough natural vaginal lubrication but she wanted to rule out other causes of vaginal pain like possible UTI, vaginal infection or sores. Today patient's pain is less, only rating pain a 3/10 and she reports pain is worst at the introitus near perineum. PAST MEDICAL HISTORY Diagnosis Date - Abnormal menstrual periods 2011 Age [age] Years Old - Asthma exacerbation, mild 2015 - NEGATIVE MEDICAL HISTORY 03/16/11 normal color vision PAST SURGICAL HISTORY Procedure Laterality Date - NONE FAMILY HISTORY Problem Relation Age of Onset - Cancer Mother Maternal AND Paternal sides - Diabetes Mother Maternal side Social History Marital status: Single Spouse name: Years of education: 12 Number of children: 0 Occupational History Occupation Employer Comment student Social History Main Topics Smoking status: Never Smoker Smokeless tobacco: Never Used Comment: guardian smokes outside Alcohol use: No Drug use: No Sexual activity: Yes Partners with: Male control/protection: Pill Current Outpatient Prescriptions: rizatriptan (MAXALT) 10 mg tablet Take 1 tablet by mouth as needed for Migraine Headache (see administration instructions). Take at onset of headache; may repeat after 2hrs. Do not exceed 30mg/day (3 doses). albuterol HFA (PROAIR HFA) 90 mcg/actuation inhaler Inhale 2 Puffs as instructed every 6 hours as needed for Wheezing/Shortness of Breath. norgestimate 0.25 mg-ethinyl estradiol 35 mcg (ESTARYLLA) 0.25-35 mg-mcg per tablet Take 1 tablet by mouth once daily. ibuprofen (MOTRIN) 800 mg tablet Take 800 mg by mouth every 6 hours as needed. loratadine (CLARITIN) 10 mg tablet Take 1 tablet by mouth once daily. No current facility-administered medications for this visit. Allergies As of Date: 06/14/2018 Allergen Noted Reaction ENVIRONMENTAL [OTHER] 05/11/2008 IMITREX [SUMATRIPTAN SUCCINATE] 05/31/2018 Shortness of Breath Fully Assessed 06/14/2018 REVIEW OF SYSTEMS Abdomen: No bloating, early satiety, indigestion, or increased flatulence. No abdominal pain, nausea, vomiting, diarrhea, or constipation. Bladder: No dysuria, gross hematuria, urinary frequency, urinary urgency, or incontinence. Breast: No breast lumps, nipple d/c, overlying skin changes, redness or skin retraction. Expanded ROS: TEEN COUNSELOR: Negative for abnormal vaginal bleeding, abnormal vaginal discharge Allergies and current medication updated:Yes EXAM: BP 130/90 Wt 154 lb 3.2 oz (69.9kg) LMP 06/05/2018 GENERAL: pleasant, female in no apparent distress HEENT: Normocephalic, atraumatic, mucus membranes moist and no lesions NECK: Supple, full range of motion, no adenopathy and thyroid normal DERMATOLOGY: Normal, without lesions, non-icteric and non-hirsute BREAST: deferred CHEST: Normal inspiratory effort ABDOMEN: soft, non-tender and no masses PELVIC: external genitalia normal, normal Bartholin's glands, urethra, [place]'s glands, no vulvar lesions, no cervical lesions, good vaginal support, physiologic discharge present, normal appearing perineal body and perianal region, small micro tears noted at introitus BIMANUAL: uterus normal size, shape and consistency, no adnexal masses and non-tender NEURO: alert and oriented x3,exam grossly non-focal EXTREMITIES: normal ASSESSMENT AND PLAN: Encounter Diagnosis ICD-10-CM 1. Other specified dyspareunia N94.19 URINE CULTURE GC/CHLAMYDIA DNA DET 2. Dysuria R30.0 GC/CHLAMYDIA DNA DET 3. Screening examination for STD (sexually transmitted disease) Z11.3 GC/CHLAMYDIA DNA DET 1) CCMS sent 2) Patient requests GC/CT culture be done 3) Encourage use of personal lubricants during penetrative intercourse 4) Encourage warm soaks to perineal area to promote healing 5) RTC PRN XIOMARA Munoz APRN.CNM 06/19/2018 3:10 PM Signed Addended by: TIAN SALVADOR on: 06/19/2018 03:10 PM Modules accepted: Orders Referring Provider: SELF [[id number]] Allergies As of Date: 06/14/2018 Noted Allergy Reaction environmental [Other] 05/11/2008 Comments: seasonal allergies IMITREX (SUMATRIPTAN SUCCINATE) 05/31/2018 12 - Shortness of Breath Date Reviewed: 06/14/2018 Reviewed by: Sri Coronado RN - Fully Assessed Primary Visit Diagnosis:Other specified dyspareunia [N94.19] Other Visit Diagnoses:Dysuria [R30.0] Screening examination for STD (sexually transmitted disease) [Z11.3] Order(s):URINE CULTURE [SQURCUL] Order #: [id number]. #:[id number] GC/CHLAMYDIA DNA DET [SQGCCAMP] Order #: [id number]. #:[id number] nitrofurantoin monohydrate and macrocrystal (MACROBID) 100 mg capsuleTake 1 capsule by mouth twice daily for 5 days.Disp: 10 capsuleRfl: 0 Prescriptions as of 06/14/2018 Sig: RIZATRIPTAN 10 MG TABLET Take 1 tablet by mouth as nee* ALBUTEROL SULFATE HFA 90 MCG/* Inhale 2 Puffs as instructed * NORGESTIMATE 0.25 MG-ETHINYL * Take 1 tablet by mouth once d* IBUPROFEN 800 MG TABLET Take 800 mg by mouth every 6 * LORATADINE 10 MG TABLET Take 1 tablet by mouth once d* NITROFURANTOIN MONOHYDRATE AND * Take 1 capsule by mouth twice* Problem List As Of Date 06/14/2018 Noted Resolved Asthma [J45.909] INVALID FOR* Prescriptions ordered this encounter Disp Refills Start End NITROFURANTOIN MONOHYDRATE AND MACROCR* 10 c* 0 06/19/2018 06/24/2018 Route: ORAL Sig: Take 1 capsule by mouth twice daily for 5 days. Disposition: Return if symptoms worsen or fail to improve. Follow-up and Disposition History Recorded Encounter Status:Closed by AVIVA SINGH CNM on 06/14/18 PROGRESS Observed: 06/14/2018 Status: COMPLETED Source: [place] 2:26 PM [facility] REPOSITORY [facility] ID: [id number] Author: Aviva Singh Service: (none) Author Type: Dish Room Worker Type: Progress Notes Filed: 06/14/2018 4:54 PM Note Text: Jennifer Yang is a 17 year old female who presents for problem visit reporting vaginal discomfort after intercourse last night. HPI: Patient reports vaginal pain after intercourse last night. Patient reports 2 episodes of intercourse last night after which she had vaginal pain afterwards. Patient believes that she may not have had enough natural vaginal lubrication but she wanted to rule out other causes of vaginal pain like possible UTI, vaginal infection or sores. Today patient's pain is less, only rating pain a 3/10 and she reports pain is worst at the introitus near perineum. PAST MEDICAL HISTORY Diagnosis Date - Abnormal menstrual periods 2011 Age [age] Years Old - Asthma exacerbation, mild 2015 - NEGATIVE MEDICAL HISTORY 03/16/11 normal color vision PAST SURGICAL HISTORY Procedure Laterality Date - NONE FAMILY HISTORY Problem Relation Age of Onset - Cancer Mother Maternal AND Paternal sides - Diabetes Mother Maternal side Social History Marital status: Single Spouse name: Years of education: 12 Number of children: 0 Occupational History Occupation Employer Comment student Social History Main Topics Smoking status: Never Smoker Smokeless tobacco: Never Used Comment: guardian smokes outside Alcohol use: No Drug use: No Sexual activity: Yes Partners with: Male control/protection: Pill Current Outpatient Prescriptions: rizatriptan (MAXALT) 10 mg tablet Take 1 tablet by mouth as needed for Migraine Headache (see administration instructions). Take at onset of headache; may repeat after 2hrs. Do not exceed 30mg/day (3 doses). albuterol HFA (PROAIR HFA) 90 mcg/actuation inhaler Inhale 2 Puffs as instructed every 6 hours as needed for Wheezing/Shortness of Breath. norgestimate 0.25 mg-ethinyl estradiol 35 mcg (ESTARYLLA) 0.25-35 mg-mcg per tablet Take 1 tablet by mouth once daily. ibuprofen (MOTRIN) 800 mg tablet Take 800 mg by mouth every 6 hours as needed. loratadine (CLARITIN) 10 mg tablet Take 1 tablet by mouth once daily. No current facility-administered medications for this visit. Allergies As of Date: 06/14/2018 Allergen Noted Reaction ENVIRONMENTAL [OTHER] 05/11/2008 IMITREX [SUMATRIPTAN SUCCINATE] 05/31/2018 Shortness of Breath Fully Assessed 06/14/2018 REVIEW OF SYSTEMS Abdomen: No bloating, early satiety, indigestion, or increased flatulence. No abdominal pain, nausea, vomiting, diarrhea, or constipation. Bladder: No dysuria, gross hematuria, urinary frequency, urinary urgency, or incontinence. Breast: No breast lumps, nipple d/c, overlying skin changes, redness or skin retraction. Expanded ROS: TEEN COUNSELOR: Negative for abnormal vaginal bleeding, abnormal vaginal discharge Allergies and current medication updated:Yes EXAM: BP 130/90 Wt 154 lb 3.2 oz (69.9kg) LMP 06/05/2018 GENERAL: pleasant, female in no apparent distress HEENT: Normocephalic, atraumatic, mucus membranes moist and no lesions NECK: Supple, full range of motion, no adenopathy and thyroid normal DERMATOLOGY: Normal, without lesions, non-icteric and non-hirsute BREAST: deferred CHEST: Normal inspiratory effort ABDOMEN: soft, non-tender and no masses PELVIC: external genitalia normal, normal Bartholin's glands, urethra, [place]'s glands, no vulvar lesions, no cervical lesions, good vaginal support, physiologic discharge present, normal appearing perineal body and perianal region, small micro tears noted at introitus BIMANUAL: uterus normal size, shape and consistency, no adnexal masses and non-tender NEURO: alert and oriented x3,exam grossly non-focal EXTREMITIES: normal ASSESSMENT AND PLAN: Encounter Diagnosis ICD-10-CM 1. Other specified dyspareunia N94.19 URINE CULTURE GC/CHLAMYDIA DNA DET 2. Dysuria R30.0 GC/CHLAMYDIA DNA DET 3. Screening examination for STD (sexually transmitted disease) Z11.3 GC/CHLAMYDIA DNA DET 1) CCMS sent 2) Patient requests GC/CT culture be done 3) Encourage use of personal lubricants during penetrative intercourse 4) Encourage warm soaks to perineal area to promote healing 5) RTC PRN Aviva Singh APRN.CNM PROGRESS Observed: 05/30/2018 Status: COMPLETED Source: [place] 9:57 AM [facility] REPOSITORY HNO ID: [id number] Author: Suzy Luther Service: (none) Author Type: Physician Type: Progress Notes Filed: 05/30/2018 5:21 PM Note Text: Reason for Visit Patient presents with: Same Day Appointment: migraine since tuesday Jennifer Yang is a 17 year old female who presents here today for Above Complaints.. Health Maintenance ANNUAL PCP TEAM CHRONIC DISEASE VISIT ONE PNEUMOVAX PRIOR TO AGE 63 INFLUENZA(1) HPI This started on Tuesday, she noticed in ty[place], on the way to it, she took some ibuprofen, relieved a little, but recurred that same evening, took another ibuprofen and is helped, went to work next morning took ibuprofenn 3 pills and could manage to work a little but she was dizzy, and nausea She did not eat much the whole of yesterday except for 2 waffles, she did not eat anything today. Cannot tolerate light and sound, ache is in the right temporal area and it throbs. She has had this headache before. Used to get it a lot in the past, but not she is not getting much. But it got better because of the ? Change in diet and drinking more water? Notices that she cannot sleep well at night. She does not get much sleep. Right now she is feeling a throbbing, does not feel light headed. No problem-specific Assessment AND Plan notes found for this encounter. PAST MEDICAL HISTORY Diagnosis Date - Abnormal menstrual periods 2010 Age [age] Years Old - Asthma exacerbation, mild 2015 - NEGATIVE MEDICAL HISTORY 03/16/11 normal color vision PAST SURGICAL HISTORY Procedure Laterality Date - NONE FAMILY HISTORY Problem Relation Age of Onset - Cancer Mother Maternal AND Paternal sides - Diabetes Mother Maternal side Social History Substance Use Topics - Smoking status: Never Smoker - Smokeless tobacco: Never Used Comment: guardian smokes outside - Alcohol use No Past medical history, appointments, medications, allergies reviewed. Pertinent Lab/Diagnostic Studies are reviewed and discussed today Current Outpatient Prescriptions: - norgestimate 0.25 mg-ethinyl estradiol 35 mcg (ESTARYLLA) 0.25-35 mg-mcg per tablet - ibuprofen (MOTRIN) 800 mg tablet - albuterol HFA (PROAIR HFA) 90 mcg/actuation inhaler - loratadine (CLARITIN) 10 mg tablet Review of Systems CONSTITUTIONAL: No fevers, chills night sweats, unintended weight loss CARDIOVASCULAR: No chest pain, dyspnea, palpitations, orthopnea, PND, ankle edema. PULM: No dyspnea, unexplained cough. GI: No dysphagia/odynophagia, problematic reflux, constipation, diarrhea, changes in stool habits, hematochezia, melena. : No new urinary complaints, including dysuria, gross hematuria or pyuria. NEURO: No new balance problems, peripheral weakness/paresthesias or numbness of concern. Physical Exam BP 114/64 (BP Site: Left Arm, BP Position: Sitting, BP Cuff Size: Regular Adult) Pulse 68 Resp 12 Ht 160 cm (5' 3) Wt 68.5 kg (151 lb) LMP 05/11/2018 SpO2 100% BMI 26.75 kg/m? General appearance: Well appearing, alert, in no acute distress, well nourished. Skin: Skin color, texture, turgor normal, no suspicious rashes or lesions Head: Normocephalic, no masses, lesions, tenderness or abnormalities Eyes: Anicteric sclera. Pupils are equally round and reactive to light. Extraocular movements are intact. Lungs: Lungs clear to auscultation. No wheezing, rhonchi, rales Heart: RRR without murmur, gallop, or rubs. Extremities: No deformities, edema, skin discoloration, clubbing or cyanosis. Good capillary refill. ASSESSMENT/PLAN: 1. Other migraine with status migrainosus, not intractable - ICD9: 346.82, ICD10: G43.801 Discussed the medication in detail, the way imitrex has to be used, Side effects to be reported to go to er with se that involve mental status changes, rashes or breathing difficulty. - ALBUTEROL SULFATE HFA 90 MCG/ACTUATION AEROSOL INHALER - SUMATRIPTAN 50 MG TABLET SUZY LUTHER MD CNOV Observed: 05/30/2018 Status: COMPLETED Source: [place] 9:40 AM [facility] REPOSITORY Office Visit (INTMWS) JENNIFER YANG ([id number]) 2000 F Date Time Provider Department 05/30/18 9:40 AM SUZY LUTHER INTMWS During your visit today, we recorded the following information about you: Pulse Respiration Blood pressure Weight 68/minute 12/minute 114/64 68.5 kg Height Last Period 1.6 m 05/11/18 SUZY LUTHER MD 05/30/2018 5:21 PM Signed Reason for Visit Patient presents with: Same Day Appointment: migraine since tuesday Jennifer Yang is a 17 year old female who presents here today for Above Complaints.. Health Maintenance ANNUAL PCP TEAM CHRONIC DISEASE VISIT ONE PNEUMOVAX PRIOR TO AGE 63 INFLUENZA(1) HPI This started on Tuesday, she noticed in tyro, on the way to it, she took some ibuprofen, relieved a little, but recurred that same evening, took another ibuprofen and is helped, went to work next morning took ibuprofenn 3 pills and could manage to work a little but she was dizzy, and nausea She did not eat much the whole of yesterday except for 2 waffles, she did not eat anything today. Cannot tolerate light and sound, ache is in the right temporal area and it throbs. She has had this headache before. Used to get it a lot in the past, but not she is not getting much. But it got better because of the ? Change in diet and drinking more water? Notices that she cannot sleep well at night. She does not get much sleep. Right now she is feeling a throbbing, does not feel light headed. No problem-specific Assessment AND Plan notes found for this encounter. PAST MEDICAL HISTORY Diagnosis Date - Abnormal menstrual periods 2010 Age [age] Years Old - Asthma exacerbation, mild 2014 - NEGATIVE MEDICAL HISTORY 03/16/11 normal color vision PAST SURGICAL HISTORY Procedure Laterality Date - NONE FAMILY HISTORY Problem Relation Age of Onset - Cancer Mother Maternal AND Paternal sides - Diabetes Mother Maternal side Social History Substance Use Topics - Smoking status: Never Smoker - Smokeless tobacco: Never Used Comment: guardian smokes outside - Alcohol use No Past medical history, appointments, medications, allergies reviewed. Pertinent Lab/Diagnostic Studies are reviewed and discussed today Current Outpatient Prescriptions: - norgestimate 0.25 mg-ethinyl estradiol 35 mcg (ESTARYLLA) 0.25-35 mg-mcg per tablet - ibuprofen (MOTRIN) 800 mg tablet - albuterol HFA (PROAIR HFA) 90 mcg/actuation inhaler - loratadine (CLARITIN) 10 mg tablet Review of Systems CONSTITUTIONAL: No fevers, chills night sweats, unintended weight loss CARDIOVASCULAR: No chest pain, dyspnea, palpitations, orthopnea, PND, ankle edema. PULM: No dyspnea, unexplained cough. GI: No dysphagia/odynophagia, problematic reflux, constipation, diarrhea, changes in stool habits, hematochezia, melena. : No new urinary complaints, including dysuria, gross hematuria or pyuria. NEURO: No new balance problems, peripheral weakness/paresthesias or numbness of concern. Physical Exam BP 114/64 (BP Site: Left Arm, BP Position: Sitting, BP Cuff Size: Regular Adult) Pulse 68 Resp 12 Ht 160 cm (5' 3) Wt 68.5 kg (151 lb) LMP 05/11/2018 SpO2 100% BMI 26.75 kg/m? General appearance: Well appearing, alert, in no acute distress, well nourished. Skin: Skin color, texture, turgor normal, no suspicious rashes or lesions Head: Normocephalic, no masses, lesions, tenderness or abnormalities Eyes: Anicteric sclera. Pupils are equally round and reactive to light. Extraocular movements are intact. Lungs: Lungs clear to auscultation. No wheezing, rhonchi, rales Heart: RRR without murmur, gallop, or rubs. Extremities: No deformities, edema, skin discoloration, clubbing or cyanosis. Good capillary refill. ASSESSMENT/PLAN: 1. Other migraine with status migrainosus, not intractable - ICD9: 346.82, ICD10: G43.801 Discussed the medication in detail, the way imitrex has to be used, Side effects to be reported to go to er with se that involve mental status changes, rashes or breathing difficulty. - ALBUTEROL SULFATE HFA 90 MCG/ACTUATION AEROSOL INHALER - SUMATRIPTAN 50 MG TABLET MD SUZY ROJO MD 05/30/2018 10:11 AM Signed Sleep Hygiene (Edu) You have been given information on Sleep Hygiene. Sleep hygiene is the practice of following good sleep habits in order to get a restful, effective night?s sleep. Poor sleep hygiene can lead to long-term insomnia and sleep deprivation. When you do not get restful, effective sleep, it will interfere with work, driving, and normal day-to-day activities. It can also have bad effects on your physical and mental health. Fortunately, there are a few simple guidelines that can help you to improve your sleep. They include changes in your personal sleeping habits and your sleeping environment, along with the creation of a routine for getting ready to go to bed. The following tips will help you with your sleep habits: ? Establish a constant bedtime and an awakening time. This is one of the most important habits in developing good sleep patterns. Try to go to bed at the same time every night, and awaken at the same time each morning. You should not nap more than 30 minutes. Avoid alcohol 4-6 hours before bedtime. Alcohol does have a sleep-inducing effect, however, as the alcohol levels in your blood start to decrease, many people experience a stimulant or ?wake- up? effect. ? Avoid caffeine 4-6 hours before bedtime. This includes coffee, tea, soda, and chocolate. ? Avoid spicy foods and foods with a lot of sugar 4-6 hours before bedtime. These foods typically affect your ability to stay asleep. ? Try to eat a light snack with foods high in tryptophan just before bedtime. Milk, bananas, yogurt, and turkey are some examples. Tryptophan increases levels of certain chemicals (neurotransmitters) in your brain. Studies have shown that this has a calming and sleep-inducing effect. ? Get into the habit of establishing a pre-sleep ritual. Examples of some things that can help you get to sleep include taking a warm bath or reading just before going to bed. ? Improve your sleep environment. For example, block out any distracting noise, eliminate as much light as you can, adjust the room to a comfortable temperature, and be sure to have comfortable bedding. ? Make sure that your bed is only used for sleeping. In time, your mind will associate your bed with sleep. ? Exercise regularly, but not right before bed. Regular exercise can help deepen sleep. However, strenuous exercise too close to bedtime may be stimulating and lessen your ability to fall asleep. ? Stop smoking entirely. If you are not able to quit, do not smoke just before bedtime. Nicotine is a stimulant. In addition, many physical health problems, such as some chronic illnesses, arthritis, acid reflux (heartburn), and undiagnosed sleep disorders, can interfere with sleep. Certain medications used to treat these medical problems may also have sleeplessness as a side-effect. Psychological or mental health problems, including depression and anxiety can cause difficulty sleeping. You should follow up with your doctor for these issues, so that together, you can develop a plan for treatment. There are also medications to help you with sleep problems; however, they are only a short-term solution and can have undesirable side-effects. Remember, the joel to the best overall improvement of sleep is to establish good sleep hygiene to help you fall asleep naturally. For more information, contact your doctor, or call or visit the National Sleep Foundation at www.sleepfoundation.org. Referring Provider: SELF [200] Allergies As of Date: 05/30/2018 Noted Allergy Reaction environmental [Other] 05/11/2008 Comments: seasonal allergies Date Reviewed: 05/30/2018 Reviewed by: Verena Lucero LPN - Fully Assessed Reason for Visit: Same Day Appointment [255] Cmt: migraine since tuesday Primary Visit Diagnosis:Other migraine with status migrainosus, not intractable [G43.801] Order(s):albuterol HFA (PROAIR HFA) 90 mcg/actuation inhalerInhale 2 Puffs as instructed every 6 hours as needed for Wheezing/Shortness of Breath.Disp: 1 gRfl: 11 SUMAtriptan (IMITREX) 50 mg tabletTake 1 tablet by mouth as needed for Migraine Headache (see administration instructions). START AT ONSET OF HEADACHE. MAY REPEAT DOSE AFTER 2 HOURS.Disp: 9 tabletRfl: 2 Prescriptions as of 05/30/2018 Sig: ALBUTEROL SULFATE HFA 90 MCG/* Inhale 2 Puffs as instructed * NORGESTIMATE 0.25 MG-ETHINYL * Take 1 tablet by mouth once d* IBUPROFEN 800 MG TABLET Take 800 mg by mouth every 6 * SUMATRIPTAN 50 MG TABLET Take 1 tablet by mouth as nee* LORATADINE 10 MG TABLET Take 1 tablet by mouth once d* Problem List As Of Date 05/30/2018 Noted Resolved Asthma [J45.909] INVALID FOR* Other instructions from your clinician: Sleep Hygiene (Edu) You have been given information on Sleep Hygiene. Sleep hygiene is the practice of following good sleep habits in order to get a restful, effective night?s sleep. Poor sleep hygiene can lead to long-term insomnia and sleep deprivation. When you do not get restful, effective sleep, it will interfere with work, driving, and normal day-to-day activities. It can also have bad effects on your physical and mental health. Fortunately, there are a few simple guidelines that can help you to improve your sleep. They include changes in your personal sleeping habits and your sleeping environment, along with the creation of a routine for getting ready to go to bed. The following tips will help you with your sleep habits: ? Establish a constant bedtime and an awakening time. This is one of the most important habits in developing good sleep patterns. Try to go to bed at the same time every night, and awaken at the same time each morning. You should not nap more than 30 minutes. Avoid alcohol 4-6 hours before bedtime. Alcohol does have a sleep-inducing effect, however, as the alcohol levels in your blood start to decrease, many people experience a stimulant or ?wake-up? effect. ? Avoid caffeine 4-6 hours before bedtime. This includes coffee, tea, soda, and chocolate. ? Avoid spicy foods and foods with a lot of sugar 4-6 hours before bedtime. These foods typically affect your ability to stay asleep. ? Try to eat a light snack with foods high in tryptophan just before bedtime. Milk, bananas, yogurt, and turkey are some examples. Tryptophan increases levels of certain chemicals (neurotransmitters) in your brain. Studies have shown that this has a calming and sleep-inducing effect. ? Get into the habit of establishing a pre-sleep ritual. Examples of some things that can help you get to sleep include taking a warm bath or reading just before going to bed. ? Improve your sleep environment. For example, block out any distracting noise, eliminate as much light as you can, adjust the room to a comfortable temperature, and be sure to have comfortable bedding. ? Make sure that your bed is only used for sleeping. In time, your mind will associate your bed with sleep. ? Exercise regularly, but not right before bed. Regular exercise can help deepen sleep. However, strenuous exercise too close to bedtime may be stimulating and lessen your ability to fall asleep. ? Stop smoking entirely. If you are not able to quit, do not smoke just before bedtime. Nicotine is a stimulant. In addition, many physical health problems, such as some chronic illnesses, arthritis, acid reflux (heartburn), and undiagnosed sleep disorders, can interfere with sleep. Certain medications used to treat these medical problems may also have sleeplessness as a side-effect. Psychological or mental health problems, including depression and anxiety can cause difficulty sleeping. You should follow up with your doctor for these issues, so that together, you can develop a plan for treatment. There are also medications to help you with sleep problems; however, they are only a short-term solution and can have undesirable side-effects. Remember, the joel to the best overall improvement of sleep is to establish good sleep hygiene to help you fall asleep naturally. For more information, contact your doctor, or call or visit the National Sleep Foundation at www.sleepfoundation.org. Prescriptions ordered this encounter Disp Refills Start End ALBUTEROL SULFATE HFA 90 MCG/ACTUATI* 1 g 11 05/30/2018 Route: INHALATION Sig: Inhale 2 Puffs as instructed every 6 hours as needed for Wheezing/Shortness of Breath. SUMATRIPTAN 50 MG TABLET 9 ta* 2 05/30/2018 Class: Print RX Route: ORAL Sig: Take 1 tablet by mouth as needed for Migraine Headache (see administration instructions). START AT ONSET OF HEADACHE. MAY REPEAT DOSE AFTER 2 HOURS. Medications Discontinued During This Encounter albuterol HFA (PROAIR HFA) 90 mcg/ac* 1 g 11 10/31/2015 05/30/2018 Route: INHALATION Sig: Inhale 2 Puffs as instructed every 6 hours as needed for Wheezing/Shortness of Breath. Disc: Reason for discontinue is not on file. Letter Text Department of Internal Medicine [address] [address] 05/30/2018 Jennifer Yang [facility]# [id number] [address] [place] [address] TO WHOM IT MAY CONCERN: This is to certify that Ms. Jennifer Yang has been under my care for illness and was unable to work from May through May 31, 2018. Sincerely yours, SUZY LUTHER MD Encounter Status:Closed by SUZY LUTHER MD on 05/30/18 PROGRESS Observed: 01/11/2018 Status: COMPLETED Source: [place] 11:03 AM [facility] RE[facility] HNO ID: [id number] Author: Lakesha (Tami) Isabel Service: (none) Author Type: Nurse Practitioner Type: Progress Notes Filed: 01/11/2018 11:35 AM Note Text: Subjective HPI HPI Jennifer Yang is a 17 year old female who presents today for CC of left ear pressure. This started 2 days ago. She is also having muffled hearing Symptoms are worsened by nothing. She has tried no treatment or medications. Risk factors wears ear buds, h/o increased cerumen PMH cerumen impaction. BP 110/72 Pulse 74 Temp 36.5 ?C (97.7 ?F) (Tympanic) Resp 16 Wt 67.6 kg (149 lb) ALLERGIES Allergen Reactions - Environmental [Othe* seasonal allergies ACTIVE PROBLEM LIST Asthma Family History Problem Relation Age of Onset - Cancer Mother Maternal AND Paternal sides - Diabetes Mother Maternal side Social History Marital status: Single Spouse name: Years of education: 12 Number of children: 0 Occupational History Occupation Employer Comment student Social History Main Topics Smoking status: Never Smoker Smokeless tobacco: Never Used Comment: guardian smokes outside Alcohol use: No Drug use: No Sexual activity: Yes Partners with: Male control/protection: Pill Review of Systems Constitutional: Negative for chills, fever and malaise/fatigue. HENT: Positive for ear pain (pressure). Negative for congestion, ear discharge and sore throat. Respiratory: Negative for cough. Musculoskeletal: Negative for myalgias. Skin: Negative for rash. Objective Physical Exam Constitutional: She is oriented to person, place, and time and well-developed, well-nourished, and in no distress. HENT: Head: Normocephalic and atraumatic. Right Ear: Tympanic membrane and ear canal normal. There is drainage (cerumen impaction). Tympanic membrane is not injected, not erythematous, not retracted and not bulging. No middle ear effusion. Left Ear: Tympanic membrane and ear canal normal. There is drainage (cerumen impaction). Tympanic membrane is not injected, not erythematous, not retracted and not bulging. No middle ear effusion. Nose: Nose normal. Right sinus exhibits no maxillary sinus tenderness and no frontal sinus tenderness. Left sinus exhibits no maxillary sinus tenderness and no frontal sinus tenderness. Mouth/Throat: Uvula is midline, oropharynx is clear and moist and mucous membranes are normal. No oropharyngeal exudate, posterior oropharyngeal edema, posterior oropharyngeal erythema or tonsillar abscesses. Bilateral ear lavage done by Imtiaz Murcia MA patient tolerated procedure well see documented exam after lavage. Eyes: Conjunctivae and EOM are normal. Pupils are equal, round, and reactive to light. Neck: Normal range of motion. Neck supple. Pulmonary/Chest: Effort normal. Lymphadenopathy: Head (right side): No submental, no submandibular, no tonsillar, no preauricular and no posterior auricular adenopathy present. Head (left side): No submental, no submandibular, no tonsillar, no preauricular and no posterior auricular adenopathy present. She has no cervical adenopathy. Right: No supraclavicular adenopathy present. Left: No supraclavicular adenopathy present. Neurological: She is alert and oriented to person, place, and time. Skin: Skin is warm and dry. Psychiatric: Affect normal. Nursing note and vitals reviewed. ASSESSMENT/PLAN: 1. Bilateral impacted cerumen - ICD9: 380.4, ICD10: H61.23 Use may use OTC Debrox or Cerumenex once a month for maintenance. Avoid inserting Q-tips into your ears. Follow up with your PCP as needed. Diagnosis and treatment plan were discussed and questions were answered to the patient's satisfaction. Pt acknowledged understanding of concepts and follow up plan. Specific signs and symptoms that would indicate the need for higher level of care were discussed in detail warranting prompt ER evaluation. Lakesha Pratt APRN.CNP CNOV Observed: 01/11/2018 Status: COMPLETED Source: [place] 11:00 AM [facility] REPOSITORY Office Visit (WSTR) JENNIFER YANG ([id number]) 2000 F Date Time Provider Department 01/11/18 11:00 AM LAKESHA PRATT (BUILDING TRADES INSTRUCTOR) [facility] During your visit today, we recorded the following information about you: Temperature Pulse Respiration Blood pressure 97.7 degrees 74/minute 16/minute 110/72 Weight 67.6 kg Lakesha Pratt APRN.CNP 01/11/2018 11:35 AM Signed Subjective HPI HPI Jennifer Tam Yang is a 17 year old female who presents today for CC of left ear pressure. This started 2 days ago. She is also having muffled hearing Symptoms are worsened by nothing. She has tried no treatment or medications. Risk factors wears ear buds, h/o increased cerumen PMH cerumen impaction. BP 110/72 Pulse 74 Temp 36.5 ?C (97.7 ?F) (Tympanic) Resp 16 Wt 67.6 kg (149 lb) ALLERGIES Allergen Reactions - Environmental [Othe* seasonal allergies ACTIVE PROBLEM LIST Asthma Family History Problem Relation Age of Onset - Cancer Mother Maternal AND Paternal sides - Diabetes Mother Maternal side Social History Marital status: Single Spouse name: Years of education: 12 Number of children: 0 Occupational History Occupation Employer Comment student Social History Main Topics Smoking status: Never Smoker Smokeless tobacco: Never Used Comment: guardian smokes outside Alcohol use: No Drug use: No Sexual activity: Yes Partners with: Male control/protection: Pill Review of Systems Constitutional: Negative for chills, fever and malaise/fatigue. HENT: Positive for ear pain (pressure). Negative for congestion, ear discharge and sore throat. Respiratory: Negative for cough. Musculoskeletal: Negative for myalgias. Skin: Negative for rash. Objective Physical Exam Constitutional: She is oriented to person, place, and time and well-developed, well-nourished, and in no distress. HENT: Head: Normocephalic and atraumatic. Right Ear: Tympanic membrane and ear canal normal. There is drainage (cerumen impaction). Tympanic membrane is not injected, not erythematous, not retracted and not bulging. No middle ear effusion. Left Ear: Tympanic membrane and ear canal normal. There is drainage (cerumen impaction). Tympanic membrane is not injected, not erythematous, not retracted and not bulging. No middle ear effusion. Nose: Nose normal. Right sinus exhibits no maxillary sinus tenderness and no frontal sinus tenderness. Left sinus exhibits no maxillary sinus tenderness and no frontal sinus tenderness. Mouth/Throat: Uvula is midline, oropharynx is clear and moist and mucous membranes are normal. No oropharyngeal exudate, posterior oropharyngeal edema, posterior oropharyngeal erythema or tonsillar abscesses. Bilateral ear lavage done by Imitaz Murcia MA patient tolerated procedure well see documented exam after lavage. Eyes: Conjunctivae and EOM are normal. Pupils are equal, round, and reactive to light. Neck: Normal range of motion. Neck supple. Pulmonary/Chest: Effort normal. Lymphadenopathy: Head (right side): No submental, no submandibular, no tonsillar, no preauricular and no posterior auricular adenopathy present. Head (left side): No submental, no submandibular, no tonsillar, no preauricular and no posterior auricular adenopathy present. She has no cervical adenopathy. Right: No supraclavicular adenopathy present. Left: No supraclavicular adenopathy present. Neurological: She is alert and oriented to person, place, and time. Skin: Skin is warm and dry. Psychiatric: Affect normal. Nursing note and vitals reviewed. ASSESSMENT/PLAN: 1. Bilateral impacted cerumen - ICD9: 380.4, ICD10: H61.23 Use may use OTC Debrox or Cerumenex once a month for maintenance. Avoid inserting Q-tips into your ears. Follow up with your PCP as needed. Diagnosis and treatment plan were discussed and questions were answered to the patient's satisfaction. Pt acknowledged understanding of concepts and follow up plan. Specific signs and symptoms that would indicate the need for higher level of care were discussed in detail warranting prompt ER evaluation. Lakesha Pratt APRN.TAMI Murcia Ma 01/11/2018 11:29 AM Signed Ear lavage performed on both ears with warm water/h202. Large amount of cerumen flushed from ear. TM is visible and intact post procedure. Patient tolerated procedure well and had no complaints during or after the procedure. Daysi Pratt APRN.TAMI 01/11/2018 11:32 AM Signed ASSESSMENT/PLAN: 1. Bilateral impacted cerumen - ICD9: 380.4, ICD10: H61.23 Use may use OTC Debrox or Cerumenex once a month for maintenance. Avoid inserting Q-tips into your ears. Follow up with your PCP as needed. Referring Provider: SELF [200] Allergies As of Date: 01/11/2018 Noted Allergy Reaction environmental [Other] 05/11/2008 Comments: seasonal allergies Date Reviewed: 01/11/2018 Reviewed by: Lakesha Pratt - Fully Assessed Reason for Visit: Ear Problem [38] Cmt: left ear pressure and headache x 2 days Primary Visit Diagnosis:Bilateral impacted cerumen [H61.23] Prescriptions as of 01/11/2018 Sig: NORGESTIMATE 0.25 MG-ETHINYL * Take 1 tablet by mouth once d* IBUPROFEN 800 MG TABLET Take 800 mg by mouth every 6 * ALBUTEROL SULFATE HFA 90 MCG/* Inhale 2 Puffs as instructed * LORATADINE 10 MG TABLET Take 1 tablet by mouth once d* Problem List As Of Date 01/11/2018 Noted Resolved Asthma [J45.909] INVALID FOR* Other instructions from your clinician: ASSESSMENT/PLAN: 1. Bilateral impacted cerumen - ICD9: 380.4, ICD10: H61.23 Use may use OTC Debrox or Cerumenex once a month for maintenance. Avoid inserting Q-tips into your ears. Follow up with your PCP as needed. Visit Notes: >> Daysi Murcia Ma TueJanuary 11, 2018 11:28 AM Status: Signed Ear lavage performed on both ears with warm water/h202. Large amount of cerumen flushed from ear. TM is visible and intact post procedure. Patient tolerated procedure well and had no complaints during or after the procedure. Daysi Murcia Ma Encounter Status:Closed by LAKESHA PRATT CNP on 01/11/18 ALLERGIES ALLERGIES DATE TYPE / CODE NAME / CODE REACTION SEVERITY SOURCE Drug No Known Unknown [facility] 8 Allergy/[id number]( Allergies/G22848 [facility] SNOMED CT) 0388(RXNORM) Hospital Repository DRUG SUMATRIPTAN SHORTNESS OF [place] 8 INGREDI/[id number]( [facility] SNOMED CT) [place] Repository Miscellaneous OTHER [place] 8 Allergy/[id number]( [facility] SNOMED CT) [place] Rep[place] ENCOUNTERS ENCOUNTERS ADMIT/DISCHARGE ACCOUNT ADMITTING ENCOUNTER LOCATION SOURCE NUMBER CLASS 08/23/2018/08/24/19 [id number] Ambulatory [address] Repository 08/08/2018/08/08/20 [id number] Emergency [place] ing:ED Repository 06/14/2018/06/15/20 [id number] Ambulatory [address] Repository 05/30/2018/05/31/20 [id number] Ambulatory [address] Repository 01/11/2018/01/13/20 [id number] Ambulatory [address] Repository PAYERS PAYERS ENCOUNTER GUARANTOR PAYER SUBSCRIBER SOURCE 08/08/2018 JENNIFER Primary JENNIFER [facility] [id number] Insurance:MEDICAIDPol [facility] Number: [id number], [place] [id number] Repository [address]Nwu: (330) Date:2018-08-08 [phone] (HP) 08/08/2018 Secondary NOT GIVENUNK [place] Insurance:SELF PAY [facility] Number: Effective Repository Date:2018-08-08
== END 2018-08-08 07:08 | disposition home or self-care (01) ==
PROVIDERS: Emergency Provider Emergency Medicine
DX: R07.89 Other chest pain (principal); F17.200 Nicotine dependence, unspecified, uncomplicated
CPT/HCPCS: 71046; 71275; 80048; 84484; 84703; 85025; 85379; 93005; 96374; 99284; Q9967; A4216

== ENCOUNTER → 2018-12-10 | Outpatient (CLI) | payer MEDICAID, SELFPAY ==
[2018-12-10 10:48] VITALS: BMI 28.5
== END | disposition home or self-care (01) ==
PROVIDERS: Referring Provider Physician Assistant Medical; Visit Provider Physician Assistant Medical
DX: J02.9 Acute pharyngitis, unspecified (principal)
CPT/HCPCS: 87081

== ENCOUNTER 2022-04-04 14:00 | Emergency (ER) | payer MEDICAID, SELFPAY ==
[2022-04-04 14:01] VITALS: BP 126/70; PULSE 83; RESP 14; TEMP 36.2; O2SAT 100; BMI 24.9
--- NOTE | 2022-04-04 14:43 | ED.RN ---
pt c/o rt pain, pointing to rt side of pelvic bone, holding rt pelvic bone. pt denies cramping or bleeding.
--- NOTE | 2022-04-04 14:46 | ED.RN ---
S/O ASKED IF WE WERE PLANNING ON SEEING HER SOON. EXPLAINED SHE IS NEXT UNLESS SOMETHING MORE CRITICAL WERE TO ARRIVE. PT DEMANDING TO GIVE HIM A TIME OF HOW MUCH LONG. EXPLAINED THAT I COULD NOT GIVE A TIME. S/O CUSSING IN WAITING ROOM. SAID WE WOULD TAKE HER TO [place] SINCE WE DID NOT CARE IF SHE . PT'S TRIAGE VITALS WERE STABLE, DENIED ANY COMPLICATIONS RELATED TO THE . PT STATED PAIN STARTED LAST NIGHT IN HER RT SIDE AND BACK AREA AND HAS MOVED DOWN. PT SHOWED THIS RN WERE HER PAIN WAS LOCATED AND IT WAS OVER THE LOWER RT GROIN/HIP AREA, WHICH IS THE AREA THE PT WAS HOLDING.
== END 2022-04-04 14:50 | disposition left against medical advice (07) ==
LOC: ED 15:14
DX: Z53.21 Procedure and treatment not carried out due to patient leaving prior to being seen by health care provider (principal)